=== PATIENT | female | born 1990 | race Caucasian/White ===

== ENCOUNTER 2020-12-04 10:58 | Emergency (ER) | payer SELFPAY ==
[2020-12-04 11:16] VITALS: BP 167/112; PULSE 101; RESP 18; TEMP 37.3; O2SAT 97; BMI 42.0
--- NOTE | 2020-12-04 11:25 | ED_ITS ---
HPI - Extremity Injury (Lower) General: Chief Complaint: Fall Stated Complaint: RLE INJURY: FALL X 2 Time Seen by Provider: 12/04/20 11:19 Source: patient Mode of arrival: ambulatory Limitations: no limitations History of Present Illness: HPI Narrative: Patient is a 29-year-old female who presents to ED today for evaluation of a right foot and ankle injury. Patient tells me 2 days ago she fell at home and twisted the right ankle. She has been ambulatory on the extremity but with a limp. Patient tells me this morning she slipped and fell and re-injured the same area. Again patient is still able to ambulate but complains of more pain. No other injury sustained or complaints at this time. MD complaint: ankle injury and foot injury Onset (ago): hour(s) Injury: Right: ankle and foot Type of Injury: eversion Place: home Severity: moderate Relieving factors: immobilization Exacerbating factors: weight bearing, movement and palpation Context: fall Associated symptoms: Reports no associated symptoms Other symptoms: none Review of Systems Eyes: Denies: change in vision Card: Denies: chest pain, palpitations, syncope or pre-syncope Resp: Denies: dyspnea GI: Denies: abdominal pain, nausea or vomiting : Denies: flank pain Musc: Reports: extremity pain (R foot) and joint pain (R ankle); Denies: neck pain, back pain, extremity swelling or joint swelling Skin/Breast: Denies: changes in skin color Neuro: Denies: numbness in extremities or sensory changes [facility] ED Female Reproductive History: Date of last menstrual period: 11/12/20 Physical Exam Const: COMMON NORMALS: no acute distress, patient oriented x3, no limitations and alert GENERAL APPEARANCE: cooperative ORIENTATION/CONSCIOUSNESS: Yes awake, Yes oriented to person, Yes oriented to place and Yes oriented to time HENMT: COMMON NORMALS: normocephalic and atraumatic HEAD & SCALP: normocephalic and atraumatic Extremity: COMMON NORMALS: normal to inspection and full ROM GENERAL: Yes normal exam except as noted LEFT LOWER EXTREMITY: Yes ankle joint (TTP medial malleolus) Left ankle: Yes inspection (normal) and Yes neurovascular exam (normal) and Yes foot & digits (TTP dorsolateral foot) Left foot and digits: Yes inspection (normal) and Yes neurovascular exam (normal) Neuro: COMMON NORMALS: patient oriented x3, moves all extremities, no focal motor deficits and no sensory deficits noted SENSORIUM/ORIENTATION: Yes alert, Yes oriented to person, Yes oriented to place and Yes oriented to time Skin: COMMON NORMALS: no rashes or lesions noted GENERAL SKIN EXAM: no rashes or lesions noted TRAUMA: no lacerations or abrasions Course Vital Signs: Vital signs: Vital Signs Temperature 98.9 F 12/04/20 11:36 Pulse Rate 87 12/04/20 11:36 Respiratory Rate 16 12/04/20 11:36 Blood Pressure 167/112 12/04/20 11:36 Pulse Oximetry 97 12/04/20 11:36 MDM - Extremity Injury (Lower) MDM Narrative: Medical decision making narrative: Patient with possible avulsion fracture to her cuboid. She does have tenderness here. Patient will be splinted, given crutches, and will follow up with orthopedics/podiatry for further evaluation. Imaging Data^: XR R ankle: Radiologist's impression: [facility] [address] [place] [id number] XRay Report Signed Patient: Sarah Bob Unit #: [id number] : 1990 Age/Sex: 29 / F ADM Date: 1 Loc: ER Room/Bed: Attending Dr: Ordering Provider/Ordering MD: Arline Whittaker Date of Service: 12/04/20 Procedure(s): XR ankle RT min 3V* 97684 Accession Number(s): [id number] Report Number: [id number] WS: [id number] RIGHT ANKLE: 3 VIEW(S) TECHNIQUE: AP, oblique(s) and lateral. HISTORY: fall/injury COMPARISON: None available. Normal anatomic alignment with no fracture or dislocation. No joint effusion or widening of the ankle mortise. No significant degenerative changes at the joint spaces. No soft tissue abnormality. XR/XR ankle RT min 3V* [id number] IMPRESSION: Mild soft tissue edema. No fracture. Dictated By: Harper Nayak DO Signed By: Harper Nayak DO Signed Date/Time: 12/04/20 1145 DD/ 1139 XR R foot: Radiologist's impression: [facility] [place] [address] [address] XRay Report Signed Patient: Sarah Bob Unit #: [id number] : 1990 Age/Sex: 29 / F ADM Date: 12/04/20 Loc: ER Room/Bed: Attending Dr: Ordering Provider/Ordering MD: Arline Whittaker Date of Service: 12/04/20 Procedure(s): XR foot RT min 3V* 51366 Accession Number(s): [id number] Report Number: [id number] WS: [id number] RIGHT FOOT: 3 VIEW(S) TECHNIQUE: AP, oblique and lateral. HISTORY: fall/injury COMPARISON: None available. Tiny osseous densities lateral to the cuboid. Indeterminate for small acute avulsion fractures. There is minimal soft tissue swelling. Normal tarsal/metatarsal alignment. Mild soft tissue edema surrounding the foot and ankle. XR/XR foot RT min 3V* 35956 IMPRESSION: 1. Mild soft tissue edema surrounding the foot and ankle. 2. Tiny avulsion fractures adjacent to the cuboid. Age-indeterminate. Could be from a recent injury. Correlate with point tenderness. Dictated By: Harper Nayak DO Signed By: Harper Nayak DO Signed Date/Time: 12/04/20 1145 DD/ 1142 Discharge Plan Discharge Patient Disposition: Home Clinical Impression: Closed fracture of cuboid of right foot Qualifiers: Encounter type: initial encounter Fracture alignment: nondisplaced Qualified Code(s): S92.214A - Nondisplaced fracture of cuboid bone of right foot, initial encounter for closed fracture Condition: Stable Discharge Orders: Discharge ED (Routine); Ordered 12/04/20 Ordered By: Arline Whittaker Referrals: Kalani Shepherd DO [Primary Care Provider] - Patient Instructions: Foot Fracture in Adults (ED) Activity Restrictions/Additional Instructions: As discussed case management should contact you shortly to set you up with your orthopedic/podiatry appointment. No weightbearing until told otherwise by orthopedics. Coding Level of Care Code ED Television Installer for Chg Fwd Exam Detailed
--- NOTE | 2020-12-04 11:25 | XR_ITS ---
WS: [id number] RIGHT ANKLE: 3 VIEW(S) TECHNIQUE: AP, oblique(s) and lateral. HISTORY: fall/injury COMPARISON: None available. Normal anatomic alignment with no fracture or dislocation. No joint effusion or widening of the ankle mortise. No significant degenerative changes at the joint spaces. No soft tissue abnormality. XR/XR ankle RT min 3V* [id number] IMPRESSION: Mild soft tissue edema. No fracture.
[2020-12-04 11:36] VITALS: BP 167/112; PULSE 87; RESP 16; TEMP 37.2; O2SAT 97
--- NOTE | 2020-12-04 13:58 | DCPLANNER ---
manager of corporate communications had message to schedule a follow up appointment for patient with ortho. manager of corporate communications called the ortho clinic, spoke with , gave clinic patients information. manager of corporate communications was told that patients information would be printed and reviewed. Clinic will call patient with appointment information.
--- NOTE | 2021-01-09 15:22 | DCPLANNER ---
Patient had a follow up appointment with ortho - patient did attend appointment.
== END 2020-12-04 12:22 | disposition home or self-care (01) ==
PROVIDERS: Emergency Provider Physician Assistant; PCP Family Medicine
DX: S92.214A Nondisplaced fracture of cuboid bone of right foot, initial encounter for closed fracture (principal); X50.1XXA Overexertion from prolonged static or awkward postures, initial encounter
CPT/HCPCS: 29515; 73610; 73630; 99283; E0114

== ENCOUNTER → 2020-12-11 13:25 | Outpatient (BNVA) | payer SELFPAY | PROVIDERS: PCP Family Medicine; Referring Provider Physician Assistant; Visit Provider Specialist | DX: S92.214A Nondisplaced fracture of cuboid bone of right foot, initial encounter for closed fracture (principal); X58.XXXA Exposure to other specified factors, initial encounter | CPT/HCPCS: 73610; 73630 ==

== ENCOUNTER 2020-12-11 14:38 | Outpatient (CLI) | payer SELFPAY | END 2020-12-11 14:39 | disposition home or self-care (01) | LOC: SPT 14:39 | PROVIDERS: PCP Family Medicine; Visit Provider Specialist | DX: Z46.89 Encounter for fitting and adjustment of other specified devices (principal); S92.214D Nondisplaced fracture of cuboid bone of right foot, subsequent encounter for fracture with routine healing; X58.XXXD Exposure to other specified factors, subsequent encounter | CPT/HCPCS: 97760; L4361 ==

== ENCOUNTER → 2021-01-01 09:11 | Outpatient (BNVA) | payer SELFPAY | PROVIDERS: PCP Family Medicine; Visit Provider Specialist | DX: S93.421A Sprain of deltoid ligament of right ankle, initial encounter (principal); W01.0XXA Fall on same level from slipping, tripping and stumbling without subsequent striking against object, initial encounter; S92.214D Nondisplaced fracture of cuboid bone of right foot, subsequent encounter for fracture with routine healing; W17.89XD Other fall from one level to another, subsequent encounter | CPT/HCPCS: 73610; 73630 ==

== ENCOUNTER 2021-01-01 11:03 | Outpatient (CLI) | payer SELFPAY | END 2021-01-01 11:04 | disposition home or self-care (01) | LOC: SPT 11:04 | PROVIDERS: PCP Family Medicine; Visit Provider Specialist | DX: Z46.89 Encounter for fitting and adjustment of other specified devices (principal); S92.214A Nondisplaced fracture of cuboid bone of right foot, initial encounter for closed fracture; X58.XXXA Exposure to other specified factors, initial encounter | CPT/HCPCS: L1902 ==

== ENCOUNTER 2021-08-30 23:50 | Emergency (ER) | payer MEDICAID, SELFPAY ==
[2021-08-31] VITALS: BP 157/95; PULSE 87; RESP 20; TEMP 36.6; O2SAT 100; BMI 38.9
--- NOTE | 2021-08-31 01:13 | W.ED.GENADLT ---
HPI - General Adult General: Chief complaint: General Medical Stated complaint: Rash Time Seen by Provider: 08/31/21 00:06 History of Present Illness: Patient is a 30-year-old female comes to the ED with a pruritic rash on face. Rash started a couple days ago. Patient says she was exposed to some poison purnima right before symptoms started. Rash is continued to spread all over her face is very itchy. Denies any trouble breathing, lip or tongue swelling. Associated symptoms: Reports rash (Pruritic rash on face); Deny chest pain, dyspnea, headache(s), nausea, palpitations or vomiting Review of Systems Const: Denies: fever(s), chills or fatigue Eyes: Denies: change in vision or eye discomfort ENMT: Denies: throat pain, odynophagia, nasal discharge or nasal congestion Card: Denies: chest pain, palpitations, edema, swelling of feet/ankles, dyspnea on exertion or orthopnea Resp: Denies: dyspnea, productive cough or non-productive cough GI: Denies: abdominal pain, nausea, vomiting, diarrhea, constipation or hematochezia : Denies: flank pain, dysuria or hematuria Musc: Denies: neck pain, back pain or extremity swelling Skin/Breast: Reports: rash (Pruritic rash on face); Denies: new lesions Neuro: Denies: headache(s), numbness in extremities or weakness in extremities PFS ED PFSH: Medical History No pertinent family history Surgical History No pertinent past surgical history Social History Smoking and tobacco status: never smoked Alcohol intake: never Female Reproductive History: Date of last menstrual period: 11/12/20 Physical Exam Const: COMMON NORMALS: no acute distress, patient oriented x3, healthy appearing and alert GENERAL APPEARANCE: cooperative and comfortable HENMT: COMMON NORMALS: normocephalic HEAD & SCALP: normocephalic MOUTH: Normal oral and palatal mucosa present, lip normal and tongue normal THROAT: posterior oropharynx normal and uvula midline Neck/C-Spine: COMMON NORMALS: supple GENERAL: Yes normal visual inspection Resp: COMMON NORMALS: normal respiratory effort, No retractions, No use of accessory muscles and clear to auscultation bilaterally AUSCULTATION: clear to auscultation bilaterally Cardio: COMMON NORMALS: regular rate, regular rhythm, S1 normal heart sound present, S2 normal heart sound present, No gallops present (Cardio), No clicks present (Cardio), No murmurs present (Cardio) and Peripheral pulses 2+ throughout RATE: regular rate RHYTHM: regular rhythm HEART SOUNDS: S1 normal heart sound present and S2 normal heart sound present PERIPHERAL PULSES: Peripheral pulses 2+ throughout GI: COMMON NORMALS: Normal to inspection, nondistended, normoactive bowel sounds present, Soft to palpation, non-tender and no masses PALPATION: Yes Soft to palpation : COMMON NORMALS: Yes no CVA tenderness BLADDER/KIDNEY EXAM: Yes no CVA tenderness Back/Pelvis: COMMON NORMALS: no CVA tenderness Neuro: COMMON NORMALS: patient oriented x3 and moves all extremities SENSORIUM/ORIENTATION: Yes alert Skin: NARRATIVE SKIN EXAM: Face?erythemic, linear vesicular looking rash noted on face chin and neck. Findings suggestive of poison purnima dermatitis. Course Vital Signs: Vital signs: Vital Signs Temperature 97.9 F 08/31/21 00:00 Pulse Rate 87 08/31/21 00:00 Respiratory Rate 16 08/31/21 02:11 Blood Pressure 126/69 08/31/21 02:11 Pulse Oximetry 100 08/31/21 00:00 [facility] - General Adult Medical Decision Making Patient is a 30-year-old female comes to the ED with pruritic rash on face. Denies any lip or tongue swelling or any trouble breathing. Exam shows poison purnima dermatitis type rash. She has no other acute findings upon exam. Patient was given dose of Kenalog and was discharged home with a prescription for a Medrol dose pack as well and she was told to use that for rashes not improving after 5 days. Return ED precautions given. Follow-up with PCP in the next week for reevaluation. Patient understood and agreed with plan. Discharge Plan Discharge Patient Disposition: Home Clinical Impression: Contact dermatitis due to poison purnima Condition: Stable Prescriptions: New Medrol (Eduardo) 4 mg tablets,dose pack See Rx Instructions .ROUTE .COMPLEX Qty: 21 0RF Rx Instructions: orally per package directions No Action levothyroxine 100 mcg capsule 100 mcg PO DAILY 0RF (DME) Cam Walker. See Rx Instructions .Route .MEDSUPPLY Qty: 1 0RF Rx Instructions: As directed (DME) Lace up ankle brace See Rx Instructions .Route .MEDSUPPLY Qty: 1 0RF Rx Instructions: As directed Discharge Orders: Discharge ED (Routine); Ordered 08/31/21 Ordered By: Bertrand Herrera Referrals: Kalani Shepherd, DO [Primary Care Provider] - Discharge Diet: Regular Discharge Activity: Resume usual activity Patient Instructions: Poison Purnima (ED) Activity Restrictions/Additional Instructions: Follow-up with medical provider as directed in the next 5 to 7 days for reevaluation. Wait for about 5 days to see if steroid shot is working an improving rash. If rashes not improving, then start taking the prescribed oral steroid. Return to the ER or your medical provider if condition worsens. Please read and understand discharge instructions. Thank you for choosing [facility] for your healthcare needs today. Please realize this is an emergency room and that we are providing you with a medical screening exam and this may not be complete and all inclusive of all the testing and or work up that you may need to determine your ailment or severity of your illness. It is very important that you follow up as instructed or that you return to the Emergency Department should you have concerns or if your condition changes or worsens in any way. Coding Level of Care Code ED Route Delivery Service Driver for Glenn Zaragoaz Exam Comprehensive
[2021-08-31] MEDS: triamcinolone 40 mg/mL SDV IM (01:55)
[2021-08-31 02:10] VITALS: BP 126/69; RESP 16
[2021-08-31 02:11] VITALS: BP 126/69; RESP 16
== END 2021-08-31 02:12 | disposition home or self-care (01) ==
PROVIDERS: Emergency Provider Physician Assistant; PCP Family Medicine
DX: L25.5 Unspecified contact dermatitis due to plants, except food (principal)
CPT/HCPCS: 96372; 99284; J3301

== ENCOUNTER 2022-10-01 18:02 | Emergency (ER) | payer MEDICAID, SELFPAY ==
[2022-10-01 18:14] VITALS: BP 165/107; PULSE 95; RESP 16; TEMP 36.9; O2SAT 98
--- NOTE | 2022-10-01 19:12 | XRR_ITS ---
PROCEDURE INFORMATION: Exam: XR Chest Exam date and time: 10/01/2022 7:16 PM Age: 31 years old Clinical indication: Chest wall pain; Additional info: HTN TECHNIQUE: Imaging protocol: Radiologic exam of the chest. Views: 1 view. COMPARISON: No relevant prior studies available. FINDINGS: Lungs: Unremarkable. No consolidation. Pleural spaces: Unremarkable. No pleural effusion. No pneumothorax. Heart/Mediastinum: Unremarkable. No cardiomegaly. Bones/joints: Unremarkable. XR/XR chest 1V portable [id number] IMPRESSION: No acute findings.
--- NOTE | 2022-10-01 19:13 | ED_ITS ---
HPI - Back Pain/Injury General: Chief Complaint: Back Pain/Injury Stated Complaint: shoulder and upper back pain Time Seen by Provider: 10/01/22 18:30 Source: patient Mode of arrival: ambulatory Limitations: no limitations History of Present Illness: 31-year-old female states that over the last 2 weeks she has been having high blood pressure she has no history of high blood pressure does not take any meds her blood pressure is 165/107 here. States she is also been having some upper back pain is feels like it tightness in her upper back she denies any chest pain denies any abdominal pain she had no headaches denies any nausea or vomiting. Associated symptoms: Deny abdominal pain, chills, fever(s), nausea or vomiting Review of Systems Const: Denies: fever(s) or chills ENMT: Denies: throat pain or dental pain Card: Denies: chest pain Resp: Denies: dyspnea GI: Denies: abdominal pain, nausea, vomiting or diarrhea Musc: Reports: back pain; Denies: neck pain Skin/Breast: Denies: rash Neuro: Denies: headache(s) PFSH ED PFSH: Medical History No pertinent family history Surgical History No pertinent past surgical history Social History Smoking and tobacco status: never smoked Alcohol intake: never Substance/Drug Use: never Physical Exam Const: COMMON NORMALS: no acute distress, patient oriented x3 and healthy appearing HENMT: COMMON NORMALS: normocephalic and atraumatic HEAD & SCALP: normocephalic and atraumatic Eye: COMMON NORMALS: conjunctivae normal CONJUNCTIVA: Yes conjunctivae normal Neck/C-Spine: COMMON NORMALS: full ROM and supple Chest: COMMONS NORMALS: normal inspection of the chest and normal palpation of entire chest wall Resp: COMMON NORMALS: normal respiratory effort, No retractions, No use of accessory muscles and clear to auscultation bilaterally AUSCULTATION: clear to auscultation bilaterally Cardio: COMMON NORMALS: regular rate, regular rhythm and No murmurs present (Cardio) RATE: regular rate RHYTHM: regular rhythm GI: INSPECTION: Yes normal to inspection Back/Pelvis: OTHER: No midline tenderness has some slight tenderness in the upper thoracic paraspinal Extremity: COMMON NORMALS: normal to inspection and full ROM Neuro: COMMON NORMALS: patient oriented x3, moves all extremities and no focal motor deficits Psych: COMMON NORMALS: mental status grossly normal, Normal thought process present and cooperative THOUGHT PROCESS: Normal thought process present Skin: COMMON NORMALS: no rashes or lesions noted and no wounds GENERAL SKIN EXAM: no rashes or lesions noted Course Vital Signs: Vital signs: Vital Signs Temperature 98.5 F 10/01/22 18:14 Pulse Rate 95 10/01/22 18:14 Respiratory Rate 16 10/01/22 18:14 Blood Pressure 165/107 10/01/22 18:14 Pulse Oximetry 98 10/01/22 18:14 Oxygen Delivery Me thod Room Air 10/01/22 18:14 MDM - Back Pain/Injury Medical Decision Making Patient presents with hypertension some slight back pain and back pains likely muscular EKG x-ray here are normal she is stable for discharge she is to follow- up with PCP and return if worsening. We will start her on Norvasc she is to keep a log of her blood pressure Medical Records I reviewed the patient's medical records. Labs I reviewed the patient's lab results. Radiology Impressions Chest X-Ray 10/01/22 19:12 IMPRESSION: No acute findings. Discharge Plan Discharge Patient Disposition: Home Clinical Impression: Hypertension, Back pain Condition: Stable Prescriptions: New Norvasc 5 mg tablet 5 mg PO DAILY Qty: 30 0RF No Action levothyroxine 100 mcg capsule 100 mcg PO DAILY (DME) Cam Walker. See Rx Instructions .Route .MEDSUPPLY Qty: 1 0RF Rx Instructions: As directed (DME) Lace up ankle brace See Rx Instructions .Route .MEDSUPPLY Qty: 1 0RF Rx Instructions: As directed Medrol (Eduardo) 4 mg tablets,dose pack See Rx Instructions .ROUTE .COMPLEX Qty: 21 0RF Rx Instructions: orally per package directions Discharge Orders: Discharge ED (Routine); Ordered 10/01/22 Ordered By: Kieran Burden Referrals: Kalani Shepherd DO [Primary Care Provider] - 1-3 days Discharge Diet: Advance as tolerated Discharge Activity: Resume usual activity Patient Instructions: Hypertension (ED), Back Pain (ED) Coding Level of Care Code ED Service Center Representative for Glenn Zaragoza
--- NOTE | 2022-10-01 19:45 | ECG_ITS ---
[facility] Test Date: 2022-10-01 Pat Name: [facility] Department: Room: Gender: Female Coil Maker: : 1990 Requested By: Kieran Burden Order Number: [id number] Florian MD: El Sanches M.D. Measurements Intervals [place] Rate: 76 P: 58 [place]: 156 QRS: 52 QRSD: 94 T: 22 QT: 359 QTc: 405 Interpretive Statements SINUS RHYTHM No previous ECG available for comparison Electronically Signed On 10-01-2022 22:06:01 CDT by El Sanchse M.D. [id number]
[2022-10-01 19:49] VITALS: BP 148/90; PULSE 86; RESP 18
[2022-10-01 20:08] VITALS: BP 145/98; PULSE 80; RESP 16
== END 2022-10-01 20:10 | disposition home or self-care (01) ==
PROVIDERS: Emergency Provider Emergency Medicine; PCP Family Medicine
DX: I10 Essential (primary) hypertension (principal); M54.9 Dorsalgia, unspecified
CPT/HCPCS: 71045; 93005; 99284

== ENCOUNTER → 2023-05-10 09:19 | Outpatient (BNVA) | payer MEDICAID, SELFPAY | PROVIDERS: PCP Family Medicine; Visit Provider Podiatrist Foot & Ankle Surgery | DX: M72.2 Plantar fascial fibromatosis; B35.3 Tinea pedis | CPT/HCPCS: 73630 ==

== ENCOUNTER 2023-05-30 17:06 | Emergency (ER) | payer MEDICAID, SELFPAY ==
[2023-05-30 17:33] VITALS: BP 169/99; PULSE 82; RESP 17; TEMP 36.7; O2SAT 99; BMI 40.2
--- NOTE | 2023-05-30 17:38 | XRR_ITS ---
PROCEDURE INFORMATION: Exam: XR Right Knee Exam date and time: 05/30/2023 5:56 PM Age: 32 years old Clinical indication: Injury or trauma; Patient HX: RT knee pain post fall TECHNIQUE: Imaging protocol: Radiologic exam of the right knee. Views: 3 views. COMPARISON: [place] [id number] ORTH 05/10/2023 9:27 AM FINDINGS: Bones/joints: Normal. Soft tissues: Soft tissue swelling along the anterior calderon. XR/XR knee RT 3V* [id number] IMPRESSION: No acute osseous abnormalities.
--- NOTE | 2023-05-30 17:38 | XRR_ITS ---
PROCEDURE INFORMATION: Exam: XR Right Wrist Exam date and time: 05/30/2023 5:56 PM Age: 32 years old Clinical indication: Injury or trauma; Patient HX: RT wrist pain post fall TECHNIQUE: Imaging protocol: Radiologic exam of the right wrist. Views: 3 or more views. COMPARISON: No relevant prior studies available. FINDINGS: Bones/joints: Normal. Soft tissues: Normal. XR/XR wrist RT min 3V* [id number] IMPRESSION: No acute findings.
--- NOTE | 2023-05-30 18:31 | ED_ITS ---
HPI - Extremity Problem General: Chief complaint: Extremity Injury, Lower Stated complaint: fall right side knee adn arm pain Time Seen by Provider: 05/30/23 18:28 History of Present Illness: Patient was taken a walk and tripped and fell landing on her right knee and catching herself with outstretched arms. Patient reports pain to her anterior knee, right wrist, and right shoulder. Patient appears nontoxic. No obvious deformity is noted to the extremities. Patient appears in mild pain. Review of Systems General: Reports: 10 or more systems reviewed and unremarkable except in HPI and below Musc: Reports: extremity pain PFS ED PFSH: Medical History No pertinent family history Surgical History No pertinent past surgical history Social History Smoking and tobacco/nicotine status: never used tobacco/nicotine Alcohol intake: never Substance/Drug Use: never Physical Exam 2 Const: COMMON NORMALS: alert HENMT: COMMON NORMALS: atraumatic HEAD & SCALP: atraumatic Neck/C-Spine: COMMON NORMALS: full ROM Resp: COMMON NORMALS: normal respiratory effort Cardio: COMMON NORMALS: regular rate RATE: regular rate Back/Pelvis: COMMON NORMALS: thoracic and lumbar spine normal to inspection Extremity: RIGHT UPPER EXTREMITY: Yes shoulder joint Right shoulder: Yes Right shoulder joint inspection exam, Yes palpation, Yes Right shoulder joint ROM exam and Yes Right shoulder joint neurovascular exam and Yes wrist Right wrist: Yes inspection, Yes palpation, Yes ROM and Yes neurovascular exam RIGHT LOWER EXTREMITY: Yes knee joint (Mild anterior bruising) Right knee: Yes inspection, Yes palpation, Yes ROM and Yes neurovascular exam Neuro: SENSORIUM/ORIENTATION: Yes alert Skin: COMMON NORMALS: turgor normal GENERAL SKIN EXAM: turgor normal Course Vital Signs: Vital signs: Vital Signs Temperature 98.1 F 05/30/23 17:33 Pulse Rate 82 05/30/23 17:33 Respiratory Rate 17 05/30/23 17:33 Blood Pressure 169/99 05/30/23 17:33 Pulse Oximetry 99 05/30/23 17:33 Oxygen Delivery Me thod Room Air 05/30/23 17:33 MDM - Extremity (Nontraumatic) Medical Decision Making 32-year-old female comes in today for complaints of injury secondary to a fall. On exam patient has superficial contusion to the right anterior knee, tenderness to the joint line of the right wrist, and tenderness to the anterior shoulder. Range of motion is intact. No obvious swelling or dislocation is noted. Differential diagnosis includes fracture, dislocation, sprain. X-rays were unremarkable. Reviewed exam with patient with recommendations for treatment and follow-up. Patient reported understanding agreed to plan. XR interpretation done by ED provider, pending radiology final review Discharge Plan Discharge Patient Disposition: Home Clinical Impression: Fall Qualifiers: Encounter type: initial encounter Qualified Code(s): W19.XXXA - Unspecified fall, initial encounter Contusion of knee, right Qualifiers: Encounter type: initial encounter Qualified Code(s): S80.01XA - Contusion of right knee, initial encounter Right wrist sprain Qualifiers: Encounter type: initial encounter Qualified Code(s): S63.501A - Unspecified sprain of right wrist, initial encounter Sprain of right shoulder joint Qualifiers: Encounter type: initial encounter Shoulder sprain type: unspecified sprain Qualified Code(s): S43.401A - Unspecified sprain of right shoulder joint, initial encounter Condition: Stable Prescriptions: No Action levothyroxine 100 mcg capsule 100 mcg PO DAILY topiramate 100 mg capsule,extended release 24hr 100 mg PO DAILY ferrous sulfate-vitamin C 65-150 mg capsule, extended release PO citalopram 20 mg tablet 20 mg PO DAILY doxycycline hyclate 100 mg tablet 100 mg PO BID 7 Days Qty: 14 0RF Rx Instructions: alpha-gal terbinafine HCl 250 mg tablet 250 mg PO DAILY 14 Days Qty: 14 0RF hydrocortisone 2.5 % cream 1 applic topical BID PRN (Reason: skin irritation) Qty: 20 0RF Discharge Orders: Discharge ED (Routine); Ordered 05/30/23 Ordered By: Richard Grover Referrals: Kalani Shepherd DO [Primary Care Provider] - Discharge Diet: Usual diet Discharge Activity: Increase activity as tolerated Patient Instructions: Musculoskeletal Pain (ED) Activity Restrictions/Additional Instructions: Home and rest. Activity as tolerated. Use acetaminophen and/or ibuprofen for pain. Gentle stretching and range of motion exercises. Ice for further pain relief. Follow-up with primary care for further instructions. Return to ED for new concerns. Coding Level of Care Code ED Game Manager for Glenn Zaragoza
--- NOTE | 2023-05-30 18:33 | XRR_ITS ---
PROCEDURE INFORMATION: Exam: XR Right Shoulder Exam date and time: 05/30/2023 6:45 PM Age: 32 years old Clinical indication: Right; Patient HX: RT shoulder pain post fall TECHNIQUE: Imaging protocol: Radiologic exam of the right shoulder. Views: 2 or more views. COMPARISON: CR XR chest 1V portable [id number] 10/01/2022 7:16 PM FINDINGS: Bones/joints: Normal. Soft tissues: Normal. XR/XR shoulder RT min 2V* [id number] IMPRESSION: No acute findings.
[2023-05-30 19:29] VITALS: BP 154/90; PULSE 76; RESP 16; TEMP 36.7; O2SAT 99
== END 2023-05-30 19:30 | disposition home or self-care (01) ==
PROVIDERS: Emergency Provider Nurse Practitioner Family; PCP Family Medicine
DX: S80.01XA Contusion of right knee, initial encounter (principal); S63.501A Unspecified sprain of right wrist, initial encounter; S43.401A Unspecified sprain of right shoulder joint, initial encounter; W01.0XXA Fall on same level from slipping, tripping and stumbling without subsequent striking against object, initial encounter
CPT/HCPCS: 73030; 73110; 73562; 99284

== ENCOUNTER → 2023-07-21 08:09 | Outpatient (BNVA) | payer MEDICAID, SELFPAY | PROVIDERS: PCP Family Medicine; Visit Provider Podiatrist Foot & Ankle Surgery | DX: B35.3 Tinea pedis; M72.2 Plantar fascial fibromatosis | CPT/HCPCS: 73630 ==

== ENCOUNTER 2023-09-22 18:59 | Emergency (ER) | payer MEDICAID, SELFPAY ==
[2023-09-22 19:02] VITALS: BP 174/111; PULSE 81; RESP 14; TEMP 36.9; O2SAT 99
[2023-09-22 19:34] LABS: Basophils % 0.4 %; Eosinophils # 0.2 10^3/uL (0.0-0.8); Eosinophils % 2.6 %; Hematocrit 39.7 % (36-47); Lymphocytes # 2.3 10^3/uL (0.8-4.8); Lymphocytes % 27.1 %; Mean Corpuscular Hemoglobin 27.5 pg (27-33); Mean Corpuscular Volume 86.1 fl (85-98); Monocytes # 0.6 10^3/uL (0.2-0.9); Monocytes % 7.2 %; Neutrophils # 5.31 10^3/uL (1.8-7.7); Neutrophils % 62.3 %; Nucleated Red Blood Cells % 0 %; Platelet Count 267 10^3/cmm (157-399); Red Blood Count 4.61 10^6/uL (3.85-5.65); Red Cell Distribution Width 13.7 % (12.1-15.1)
--- NOTE | 2023-09-22 19:43 | CTR_ITS ---
PROCEDURE INFORMATION: Exam: CT Abdomen And Pelvis With Contrast Exam date and time: 09/22/2023 9:03 PM Age: 32 years old Clinical indication: Abdominal pain; Localized; Right lower quadrant (rlq); Prior surgery; Surgery date: 6+ months; Surgery type: Tubal/csection; Additional info: Rlq pain, rebound TECHNIQUE: Imaging protocol: Computed tomography of the abdomen and pelvis with contrast. Radiation optimization: All CT scans at this facility use at least one of these dose optimization techniques: automated exposure control; mA and/or kV adjustment per patient size (includes targeted exams where dose is matched to clinical indication); or iterative reconstruction. Contrast material: OMBI 350; Contrast volume: 100 ml; Contrast route: INTRAVENOUS (IV); COMPARISON: CR XR chest 1V portable [id number] 10/01/2022 7:16 PM RADIATION DOSE METRICS: Total DLP (mGy-cm): 969.2 FINDINGS: Liver: Focal hypoattenuation adjacent to the falciform ligament likely representing focal fatty sparing. Gallbladder and biliary ducts: Normal. No calcified stones. No ductal dilation. Pancreas: Normal. No ductal dilation. Spleen: Normal. No splenomegaly. Adrenal glands: Normal. No mass. Kidneys and ureters: Normal. No hydronephrosis. Stomach and bowel: Unremarkable. No obstruction. No mucosal thickening. Appendix: No evidence of appendicitis. Intraperitoneal space: See Reproductive finding. Vasculature: Unremarkable. No abdominal aortic aneurysm. Lymph nodes: Unremarkable. No enlarged lymph nodes. Urinary bladder: Unremarkable as visualized. Reproductive: There is a 5.2 x 5.0 cm right adnexal cyst with Hounsfield units of approximately 17. Small amount of free fluid within the pelvis. Physiologic appearance of the uterus. Bones/joints: Unremarkable. No acute fracture. Soft tissues: Unremarkable. CT/CT abdomen pelvis w con* [id number] IMPRESSION: There is a 5.2 cm right adnexal cyst simple cyst. Small amount of free fluid within the pelvis. Findings can be further evaluated with ultrasound if clinically indicated.
[2023-09-22 19:56] LABS: Alanine Aminotransferase 11 U/L (0-33); Albumin Level 4.2 g/dL (3.5-5.2); Alkaline Phosphatase 77 U/L (35-105); Anion Gap 16.5 (5-19); Aspartate Amino Transferase 11 U/L (0-32); Blood Urea Nitrogen 10 mg/dL (6-20); Calcium 8.5 mg/dL (8.5-10.5); Carbon Dioxide 24 mmol/L (22-29); Chloride 102 mmol/L (98-107); Glomerular Filtration Rate 143.9 mL/min (90-130); Glucose 100 mg/dL (65-115); Lipase 24 U/L (13-60); Osmolality Calculated 287 mOsm/kg (285-295); Potassium 3.5 mmol/L (3.5-5.1); Sodium 139 mmol/L (136-145); Total Bilirubin 0.3 mg/dL (0.15-1.2); Total Protein 7.2 g/dL (6.6-8.7)
[2023-09-22 20:08] LABS: Urine Color Yellow (Yellow)
[2023-09-22 20:09] LABS: Add Urine Microscopic? YES; Bacteria Urine 2+ /hpf; Bilirubin Urine Neg (Negative); Blood Urine 3+ (Negative); Glucose Urine UA Norm (Normal); Ketones Urine 1+ (Negative); Leukocyte Esterase Urine Negative (Negative); Nitrate Urine Negative (Negative); Protein Urine Neg (Negative); RBC Urine 25-40 /hpf (0-2); Squamous Epithelial Cell Urine 15-25 /hpf (0-5); Urine Appearance Slightly Cloudy (CLEAR); Urobilinogen Urine Norm (Negative); WBC Urine 0-4 /hpf (0-5); pH Urine 5 (5-7)
[2023-09-22 20:10] LABS: Add Urine Culture? No
--- NOTE | 2023-09-22 20:39 | ED_ITS ---
HPI - Abdominal Pain 2 General: Chief Complaint: Abdominal Pain Stated Complaint: Abd Time Seen by Provider: 09/22/23 19:14 History of Present Illness: Patient presents to the ER with complaints of right lower quadrant abdominal pain. This been going on today. Patient's only had a . Patient is no history of kidney stones. Patient still has her appendix. Has been getting worse. Patient said she when she went to the bathroom had a BM that was normal. Then she tried to go to the bathroom again but nothing came out but when she wiped she had bright red blood on her toilet paper. Patient has not taken anything for pain. Patient declined pain medicine at this time or nausea medicine. Review of Systems 2 General: Reports: 10 or more systems reviewed and unremarkable except in HPI and below PFSH ED 2 PFSH: Medical History No pertinent family history Surgical History No pertinent past surgical history Social History Smoking and tobacco/nicotine status: never used tobacco/nicotine Alcohol intake: never Substance/Drug Use: never Physical Exam 2 Const: COMMON NORMALS: no acute distress, average body habitus, patient oriented x3, no limitations, healthy appearing, alert and well nourished HENMT: COMMON NORMALS: normocephalic, atraumatic, hearing grossly normal bilaterally, external ears normal, Normal external nose present and moist oral mucous membranes HEAD & SCALP: normocephalic and atraumatic NOSE: Normal external nose present EXTERNAL EAR: Yes external ears normal Neck/C-Spine: COMMON NORMALS: no JVD Chest: COMMONS NORMALS: normal inspection of the chest and normal palpation of entire chest wall Resp: COMMON NORMALS: normal respiratory effort, No retractions, No use of accessory muscles and clear to auscultation bilaterally AUSCULTATION: clear to auscultation bilaterally Cardio: COMMON NORMALS: no JVD, regular rate, regular rhythm, S1 normal heart sound present, S2 normal heart sound present, No gallops present (Cardio), No clicks present (Cardio), No murmurs present (Cardio) and No rub (Cardio) R ATE: regular rate RHYTHM: regular rhythm HEART SOUNDS: S1 normal heart sound present and S2 normal heart sound present GI: COMMON NORMALS: Normal to inspection, nondistended, normoactive bowel sounds present, Soft to palpation, No hepatosplenomegaly present and no masses; negative for non-tender (Tenderness to palpate right lower quadrant, positive rebound) PALPATION: Yes Soft to palpation and Yes No hepatosplenomegaly present Neuro: COMMON NORMALS: patient oriented x3 SENSORIUM/ORIENTATION: Yes alert Course 2 Vital Signs: Vital signs: Vital Signs Temperature 98.5 F 09/22/23 19:02 Pulse Rate 81 09/22/23 19:02 Respiratory Rate 14 09/22/23 19:02 Blood Pressure 174/111 09/22/23 19:02 Pulse Oximetry 99 09/22/23 19:02 Oxygen Delivery Me thod Room Air 09/22/23 19:02 MDM - Abdominal Pain Medical Decision Making Patient CBC CMP, urinalysis, lipase, abdominal contrasted CT scan of the abdomen pelvis, all of which was benign except a 5.2 cm right adnexal simple ovarian cyst. Small amount of free fluid in pelvis. These results was discussed with the patient. Patient will go home with observation may need follow-up with FP and/or OPTIMIZATION SPECIALIST, discussed the risks of ovarian torsion and told patient what to look for. Patient knows to go to the emergency room immediately if this happens. Differential Diagnosis Likely abdominal pain and acute appendicitis Medical Records I reviewed the patient's medical records. Lab Data I reviewed the patient's lab results. 09/22/23 19:22 09/22/23 19:22 Labs/Radiology: Radiology Impressions Abdomen/Pelvis CT 09/22/23 19:43 IMPRESSION: There is a 5.2 cm right adnexal cyst simple cyst. Small amount of free fluid within the pelvis. Findings can be further evaluated with ultrasound if clinically indicated. Laboratory Results WBC 8.50 10^3/uL (3.29-11.43) 09/22/23 19:22 RBC 4.61 10^6/uL (3.85-5.65) 09/22/23 19:22 Hgb 12.70 g/dL (11.27-16.99) 09/22/23 19:22 Hct 39.7 % (36-47) 09/22/23 19:22 MCV 86.1 fl (85-98) 09/22/23 19:22 MCH 27.5 pg (27-33) 09/22/23 19:22 MCHC 32.0 g/dL (30-55) 09/22/23 19:22 RDW 13.7 % (12.1-15.1) 09/22/23 19:22 Plt Count 267 10^3/cmm (157-399) 09/22/23 19:22 MPV 10.0 fL (7.4-10.4) 09/22/23 19:22 Neut % (Auto) 62.3 % 09/22/23 19:22 Lymph % (Auto) 27.1 % 09/22/23 19:22 Trigg % (Auto) 7.2 % 09/22/23 19:22 Eos % (Auto) 2.6 % 09/22/23 19:22 Baso % (Auto) 0.4 % 09/22/23 19:22 Neut # (Auto) 5.31 10^3/uL (1.8-7.7) 09/22/23 19:22 Lymph # (Auto) 2.3 10^3/uL (0.8-4.8) 09/22/23 19:22 Trigg # (Auto) 0.6 10^3/uL (0.2-0.9) 09/22/23 19:22 Eos # (Auto) 0.2 10^3/uL (0.0-0.8) 09/22/23 19:22 Baso # (Auto) 0.0 10^3/uL (0.0-0.1) 09/22/23 19:22 Nucleated RBC % (auto) 0 % 09/22/23 19:22 Nucleated RBCs # 0.0 /100WBC 09/22/23 19:22 Sodium 139 mmol/L (136-145) 09/22/23 19:22 Potassium 3.5 mmol/L (3.5-5.1) 09/22/23 19:22 Chloride 102 mmol/L (98-107) 09/22/23 19:22 Carbon Dioxide 24 mmol/L (22-29) 09/22/23 19:22 Anion Gap 16.5 (5-19) 09/22/23 19:22 BUN 10 mg/dL (6-20) 09/22/23 19:22 Creatinine 0.5 mg/dL (0.5-0.9) 09/22/23 19:22 GFR Calculation 143.9 mL/min (90-130) H 09/22/23 19:22 Glucose 100 mg/dL (65-115) 09/22/23 19:22 Calculated Osmolality 287 mOsm/kg (285-295) 09/22/23 19:22 Calcium 8.5 mg/dL (8.5-10.5) 09/22/23 19:22 Total Bilirubin 0.3 mg/dL (0.15-1.2) 09/22/23 19:22 AST 11 U/L (0-32) 09/22/23 19:22 ALT 11 U/L (0-33) 09/22/23 19:22 Alkaline Phosphatase 77 U/L (35-105) 09/22/23 19:22 Total Protein 7.2 g/dL (6.6-8.7) 09/22/23 19:22 Albumin 4.2 g/dL (3.5-5.2) 09/22/23 19:22 Globulin 3.0 g/dL (1.3-4.6) 09/22/23 19:22 Lipase 24 U/L (13-60) 09/22/23 19:22 Urine Color Yellow (Yellow) 09/22/23 19:48 Urine Appearance Slightly cloudy (CLEAR) 09/22/23 19:48 Urine pH 5 (5-7) 09/22/23 19:48 Ur Specific [place] 1.030 (1.005-1.030) 09/22/23 19:48 Urine Protein Neg (Negative) 09/22/23 19:48 Urine Glucose (UA) Norm (Normal) 09/22/23 19:48 Urine Ketones 1+ (Negative) H 09/22/23 19:48 Urine Blood 3+ (Negative) H 09/22/23 19:48 Urine Nitrate Negative (Negative) 09/22/23 19:48 Urine Bilirubin Neg (Negative) 09/22/23 19:48 Urine Urobilinogen Norm mg/dL (Negative) 09/22/23 19:48 Ur Leukocyte Esterase Negative (Negative) 09/22/23 19:48 Urine RBC 25-40 /hpf (0-2) H 09/22/23 19:48 Urine WBC 0-4 /hpf (0-5) H 09/22/23 19:48 Ur Squamous Epith Cells 15-25 /hpf (0-5) H 09/22/23 19:48 Amorphous Sediment Not Reportable 09/22/23 19:48 Urine Bacteria 2+ /hpf (NONE) H 09/22/23 19:48 All radiology interpretation(s) finalized by discharge Discharge Plan Discharge Patient Disposition: Home Clinical Impression: Cyst of right ovary Condition: Stable Prescriptions: No Action levothyroxine 100 mcg capsule 100 mcg PO DAILY topiramate 100 mg capsule,extended release 24hr 100 mg PO DAILY ferrous sulfate-vitamin C 65-150 mg capsule, extended release PO citalopram 20 mg tablet 20 mg PO DAILY terbinafine HCl 250 mg tablet 250 mg PO DAILY 14 Days Qty: 14 0RF hydrocortisone 2.5 % cream 1 applic topical BID PRN (Reason: skin irritation) Qty: 20 0RF Discharge Orders: Discharge ED (Routine); Ordered 09/22/23 Ordered By: Dylan Gilmore Referrals: Kalani Shepherd DO [Primary Care Provider] - 1 week Patient Instructions: Ovarian Cyst (ED) Activity Restrictions/Additional Instructions: Your CT scan showed you have a 5.2 cm right ovarian cyst. Symptomatic treatment for this is just observation. If your pain worsens and gets out of control please feel free to return to the ER as this may have developed into an ovarian torsion which is a surgical emergency. Otherwise he may end up following up with your family practice physician and/or OPTIMIZATION SPECIALIST for further evaluation and treatment. Coding Level of Care Code ED Bike Mechanic for Glenn Zaragoza
[2023-09-22] MEDS: iohexol 350 mg/mL 500 mL Btl (per mL) IV (21:05)
[2023-09-22 21:52] VITALS: BP 142/91; PULSE 81; O2SAT 100
[2023-09-22 21:53] VITALS: BP 142/91; PULSE 81; O2SAT 100
== END 2023-09-22 21:49 | disposition home or self-care (01) ==
PROVIDERS: Emergency Provider Emergency Medicine; PCP Family Medicine
DX: N83.291 Other ovarian cyst, right side (principal)
CPT/HCPCS: 74177; 80053; 81001; 83690; 85025; 99285; Q9967

== ENCOUNTER 2023-10-16 11:33 | Emergency (ER) | payer MEDICAID, SELFPAY ==
[2023-10-16 12:10] VITALS: BP 157/118; PULSE 91; RESP 18; TEMP 37.1; O2SAT 99; BMI 40.2
--- NOTE | 2023-10-16 12:15 | ED_ITS ---
HPI - Animal Bite General: Chief Complaint: Animal Bite Stated Complaint: stung on left leg Time Seen by Provider: 10/16/23 12:06 Source: patient Mode of arrival: ambulatory Limitations: no limitations History of Present Illness: 32-year-old female states she was stung by a wasp on her left lower leg last night states she had erythema itching and some pain at the site. She denies any fevers denies any drainage she is taken Benadryl denies any worse improving factors Associated symptoms: Deny chills, fever(s) or headache(s) Related Data Home Medications Medication Instructions Recorded Confirmed levothyroxine 100 mcg capsule 100 mcg PO DAILY 12/11/20 07/21/23 citalopram 20 mg tablet 20 mg PO DAILY 02/12/23 07/21/23 ferrous sulfate-vitamin C ER 65 cap PO 02/12/23 07/21/23 mg-150 mg capsule,extended release topiramate 100 mg capsule,extended 100 mg PO DAILY 02/12/23 07/21/23 release 24 hr Previous Rx's Medication Instructions Recorded hydrocortisone 2.5 % topical cream 1 applic topical BID PRN skin 05/10/23 irritation #20 grams terbinafine HCl 250 mg tablet 250 mg PO DAILY 2 weeks #14 tabs 05/10/23 Allergies Allergy/AdvReac Type Severity Reaction Status Date / Time Alpha-Gal Allergy ADR-Gastrointestinal Verified 10/16/23 12:15 (Xxl[place]orea-Ukzon-2,3-Gala Upset poison jacques extract Allergy ALGY-Hives Verified 10/16/23 12:15 Review of Systems Const: Denies: fever(s), chills, body aches or change in appetite ENMT: Denies: throat pain or dental pain Card: Denies: chest pain Resp: Denies: dyspnea GI: Denies: abdominal pain, nausea, vomiting or diarrhea Musc: Reports: extremity pain; Denies: neck pain or back pain Skin/Breast: Reports: erythema; Denies: rash Neuro: Denies: headache(s) PFSH ED PFSH: Medical History No pertinent family history Surgical History No pertinent past surgical history Social History Smoking and tobacco/nicotine status: never used tobacco/nicotine Alcohol intake: never Substance/Drug Use: never Physical Exam Const: COMMON NORMALS: no acute distress, patient oriented x3 and healthy appearing HENMT: COMMON NORMALS: normocephalic and atraumatic HEAD & SCALP: normocephalic and atraumatic Neck/C-Spine: COMMON NORMALS: full ROM and supple Chest: COMMONS NORMALS: normal inspection of the chest Resp: COMMON NORMALS: normal respiratory effort Cardio: COMMON NORMALS: regular rate RATE: regular rate Extremity: NARRATIVE EXTREMITY EXAM: While sting to left lower leg slight erythema no warmth to touch no abscess Neuro: COMMON NORMALS: patient oriented x3, moves all extremities and no focal motor deficits Psych: COMMON NORMALS: mental status grossly normal, Normal thought process present and cooperative THOUGHT PROCESS: Normal thought process present Skin: COMMON NORMALS: no rashes or lesions noted and no wounds GENERAL SKIN EXAM: no rashes or lesions noted Course Vital Signs: Vital signs: Vital Signs Temperature 98.8 F 10/16/23 12:10 Pulse Rate 91 10/16/23 12:10 Respiratory Rate 18 10/16/23 12:10 Blood Pressure 157/118 10/16/23 12:10 Pulse Oximetry 99 10/16/23 12:10 Oxygen Delivery Me thod Room Air 10/16/23 12:10 MDM - Animal Bite Medical Decision Making Patient presents with stating that is localized reaction no signs of cellulitis she stable for discharge continue Benadryl return if worsening No radiology studies performed this visit Discharge Plan Discharge Patient Disposition: Home Clinical Impression: Wasp sting Condition: Stable Prescriptions: No Action levothyroxine 100 mcg capsule 100 mcg PO DAILY topiramate 100 mg capsule,extended release 24hr 100 mg PO DAILY ferrous sulfate-vitamin C 65-150 mg capsule, extended release PO citalopram 20 mg tablet 20 mg PO DAILY terbinafine HCl 250 mg tablet 250 mg PO DAILY 14 Days Qty: 14 0RF hydrocortisone 2.5 % cream 1 applic topical BID PRN (Reason: skin irritation) Qty: 20 0RF Discharge Orders: Discharge ED (Routine); Ordered 10/16/23 Ordered By: Kieran Burden Referrals: Kalani Shepherd DO [Primary Care Provider] - 4-7 days Discharge Diet: Advance as tolerated Discharge Activity: Resume usual activity Patient Instructions: Insect Bite or Sting (ED) Coding Level of Care Code ED Water Conservation Specialist for Glenn Zaragoza
[2023-10-16] MEDS: naproxen 500 mg Tablet PO (12:23)
[2023-10-16] MEDS: famotidine 20 mg Tablet 40 MG PO (12:23)
[2023-10-16 12:26] VITALS: BP 155/115; PULSE 89; RESP 16; TEMP 37.1; O2SAT 98
== END 2023-10-16 12:25 | disposition home or self-care (01) ==
PROVIDERS: Emergency Provider Emergency Medicine; PCP Family Medicine
DX: T63.461A Toxic effect of venom of wasps, accidental (unintentional), initial encounter (principal)
CPT/HCPCS: 99283